=== PATIENT | female | born 1995 ===

== ENCOUNTER 2023-05-22 19:15 | Emergency (ER) | payer BC, OTHER ==
[2023-05-22] MEDS ORDERED: Lidocaine 1% PF 2 ML SDV INJECT ONE (20:07)
[2023-05-22] MEDS ORDERED: Acetaminophen/HYDROcodone 325-5 MG Tab PO ONE (20:07)
[2023-05-22] MEDS ORDERED: Ondansetron 4 MG Tab.DIS PO ONE (20:07)
[2023-05-22] MEDS ORDERED: Diphtheria,Pertussis(Acell),Tetanus Vaccine 0.5 ML Syringe IM ONE (20:23)
== END 2023-05-22 20:50 | disposition home or self-care (01) ==
LOC: MW.ED 19:15
DX: S97.01XA Crushing injury of right ankle, initial encounter (principal); S91.011A Laceration without foreign body, right ankle, initial encounter; Z23 Encounter for immunization; Z88.0 Allergy status to penicillin; Z88.7 Allergy status to serum and vaccine; W22.09XA Striking against other stationary object, initial encounter
CPT/HCPCS: 12002; 73610; 90471; 90715; 99283; A9270; J3490

== ENCOUNTER 2025-06-20 18:24 | Emergency (ER) | payer BC, OTHER | END 2025-06-20 20:25 | disposition home or self-care (01) | LOC: MW.ED 18:24 | DX: S60.011A Contusion of right thumb without damage to nail, initial encounter (principal); S00.212A Abrasion of left eyelid and periocular area, initial encounter; E10.9 Type 1 diabetes mellitus without complications; Z75.3 Unavailability and inaccessibility of health-care facilities; Z88.0 Allergy status to penicillin; Z88.7 Allergy status to serum and vaccine; Z79.4 Long term (current) use of insulin; Z79.899 Other long term (current) drug therapy; V49.9XXA Car occupant (driver) (passenger) injured in unspecified traffic accident, initial encounter | CPT/HCPCS: 73130; 99284; A9270; 99283 ==